=== PATIENT | female | born 1985 | race Two or more races ===

== ENCOUNTER 2022-12-25 08:37 | Emergency (ER) | payer SELFPAY ==
[~2022-12-25] VITALS: Ht 167.6 cm; Wt 113.0 kg
[2022-12-25 08:41] VITALS: O2SAT 100
[2022-12-25] MEDS ORDERED: ONDANSETRON HCL 4MG/2ML INJ IV ONE (09:15)
[2022-12-25] MEDS ORDERED: SODIUM CHLORIDE 0.9% 500 ML IV ONE (09:15)
[2022-12-25] MEDS ORDERED: FAMOTIDINE 20MG/2ML VIAL IV ONE (09:15)
[2022-12-25 09:32] LABS: BASOPHILS % 0.7 % (0.0-2.0); EOSINOPHILS % 0.4 % (0.0-5.0); HEMATOCRIT. 31.4 % (36.0-48.0); HEMOGLOBIN. 9.8 g/dL (12.0-16.0); LYMPHOCYTES % 12.2 % (20.0-50.0); MEAN CORPUSCULAR HEMOGLOBIN 20.5 pg (28.0-32.0); MEAN CORPUSCULAR VOLUME 65.2 fL (81.0-99.0); MONOCYTES % 3.8 % (2.0-8.0); NEUTROPHILS % 82.9 % (40.0-76.0); PLATELET 443 x1000/uL (130-400); RED BLOOD CELL COUNT 4.81 mill/uL (4.2-5.4); RED CELL DISTRIBUTION WIDTH 19.7 % (11.6-14.6)
[2022-12-25 09:41] LABS: PROTHROMBIN TIME 10.8 sec (9.6-11.0)
[2022-12-25 09:43] LABS: CHLORIDE 108 mEq/L (98-107)
[2022-12-25 09:55] LABS: CLARITY URINE CLEAR (CLEAR); COLOR URINE YELLOW (YELLOW); KETONES URINE NEGATIVE (NEGATIVE); LEUKOCYTE ESTERASE URINE TRACE (NEGATIVE); NITRITE URINE NEGATIVE (NEGATIVE); OCCULT BLOOD URINE 3+ (NEGATIVE); PROTEIN URINE NEGATIVE (NEGATIVE); SPECIFIC GRAVITY URINE 1.012 (1.005-1.030); UROBILINOGEN URINE 0.2 E.U./dL (0.2-1.0)
[2022-12-25 10:06] LABS: HCG SCREEN NEGATIVE
[2022-12-25 10:07] LABS: PLATELET ESTIMATE SLIGHTLY INCREASED
[2022-12-25] MEDS ORDERED: KETOROLAC 30MG/ML VIAL IV ONE (11:15)
[2022-12-25] MEDS ORDERED: TAMS-11 MT (12:18)
[2022-12-25] MEDS ORDERED: IBUP-2029 MT (12:18)
[2022-12-25 12:51] VITALS: BP 136/90; PULSE 75; RESP 12; TEMP 98.5
== END 2022-12-25 13:12 | disposition home or self-care (01) ==
LOC: ER 08:37
DX: N20.0 Calculus of kidney (principal); I10 Essential (primary) hypertension
CPT/HCPCS: 80053; 81003; 84703; 83690; 85025; 85610; 36415; 74176; 76830; 76856; 76857; 96361; 96374; 99285; J3490; J1885; J7040; Z7610 ×4